=== PATIENT | male | born 1950 | race Caucasian/White ===

== ENCOUNTER 2022-09-18 08:49 | Outpatient (REF) | payer MEDICARE, SELFPAY ==
--- NOTE | ~2022-09-18 | FL_ITS ---
EXAMINATION: FL BARIUM SWALLOW CLINICAL INFORMATION: Heartburn. Gastroesophageal reflux disease COMPARISON: None TECHNIQUE: Barium swallow examination is performed using fluoroscopic evaluation in addition to multiple fluoroscopic spot views. The patient is imaged both upright and prone and using both thick and thin sulfate along with effervescent granules. Barium tablet was also administered. Fluoroscopy time: 0.9 minutes DAP: 9 Gycm2 Images: 45 FINDINGS: The swallowing mechanism is normal. No aspiration or penetration is seen. There is abnormal esophageal motility with tertiary contractions. There is significant gastroesophageal reflux. There is mucosal irregularity of the distal thoracic esophagus just above the GE junction and feline contractions questionable for Duran's esophagus. Endoscopic correlation is recommended. No mass or stricture is appreciated. No hernia. Barium tablet passed freely into the stomach. FL/FL barium swallow IMPRESSION: Severe gastroesophageal reflux. Mucosal irregularity of the distal thoracic esophagus just above the GE junction and feline contractions questionable for Duran's esophagus. Endoscopic correlation recommended.
== END 2022-09-18 08:50 | disposition home or self-care (01) ==
LOC: HO.XRAY 08:49
PROVIDERS: PCP Family Medicine; Visit Provider Internal Medicine Gastroenterology
DX: K21.9 Gastro-esophageal reflux disease without esophagitis (principal)
CPT/HCPCS: 74220

== ENCOUNTER → 2022-10-05 10:22 | Day surgery (SDC) | payer MEDICARE, SELFPAY ==
--- NOTE | 2022-10-04 10:51 | HO.ANESPROP2 ---
Documented by User: Annamaria Orellana NP 10/04/22 10:51 HPI - Anesthesia Eval Consult details Narrative: 71yo M for [facility] Past Medical History Medical History Elevated cholesterol Environmental allergies GERD (gastroesophageal reflux disease) HTN (hypertension) Surgical History Surgical History Hx of arthroscopic knee surgery Hx of colonoscopy Hx of tonsillectomy Social History Social History Patient Tobacco Use Status: Current someday Tobacco user Tobacco use type: Cigar Smoked in Last 30 Days: Yes Patient Interested in Nicotine Replacement: No Are you DNR?: No Advance Directives: No Advance Directives Information Provided: Yes Nutrition Risks: No Nutritional Risk Meds Allergies Allergy/AdvReac Type Severity Reaction Status Date / Time bee pollen [BEE STINGS] Allergy Unknown SWELLING Unverified 04/14/20 15:32 Home Medications Medication Instructions Recorded Confirmed Last Taken Type lisinopril 10 mg tablet 1 tab PO DAILY 10/04/22 10/04/22 Unknown History loratadine 10 mg tablet 10 mg PO DAILY 10/04/22 10/04/22 Unknown History simvastatin 20 mg tablet 1 tab PO DAILY 10/04/22 10/04/22 Unknown History Exam Exam Date and Time: October 04, 2022 1051 Assessment and Plan Assessment Anesthesia Assessment: Chart Reviewed Documented by User: Heena Amos MD 10/05/22 11:57 [facility] Past Medical History Medical History Elevated cholesterol Environmental allergies GERD (gastroesophageal reflux disease) HTN (hypertension) Surgical History Surgical History Hx of arthroscopic knee surgery Hx of colonoscopy Hx of tonsillectomy History of Problems with Anesthesia: No Social History Social History Patient Tobacco Use Status: Current someday Tobacco user Tobacco use type: Cigar Smoked in Last 30 Days: Yes Patient Interested in Nicotine Replacement: No Are you DNR?: No Advance Directives: No Advance Directives Information Provided: Yes Nutrition Risks: No Nutritional Risk Meds Allergies Allergy/AdvReac Type Severity Reaction Status Date / Time bee pollen [BEE STINGS] Allergy Unknown SWELLING Unverified 04/14/20 15:32 Home Medications Medication Instructions Recorded Confirmed Last Taken Type lisinopril 10 mg tablet 1 tab PO DAILY 10/04/22 10/04/22 Unknown History loratadine 10 mg tablet 10 mg PO DAILY 10/04/22 10/04/22 Unknown History simvastatin 20 mg tablet 1 tab PO DAILY 10/04/22 10/04/22 Unknown History Exam Airway Mallampati Class: III TM Dist: >3cm Neck ROM: Full Partial: Upper Loose/Missing/Broken Teeth: No Heart: RRR Lungs: CTA Assessment and Plan Assessment Anesthesia Assessment: Anesthesia Plan Discussed Final Anesthetic Review History of Problems with Anesthesia: No NPO: Yes ASA Class: II Final Preanesthetic Review: Meds/Allgs Chart Reviewed, Consent Obtained/Reviewed and Anes Risks/Benef Reviewed Patient Risk: Low Procedure Risk: Intermediate Anesthetic Plan Anesthetic Plan: MAC: Disposition: Standard PACU
[2022-10-05 10:54] VITALS: BMI 31.7
[2022-10-05] MEDS: Lactated Ringers 1,000 ML 100 ML IVCONT (10:55)
[2022-10-05 11:29] VITALS: BP 165/94; PULSE 72; RESP 18; TEMP 36.6; O2SAT 97
--- NOTE | 2022-10-05 11:56 | MHC.SHP ---
Pre-Procedural Eval Section A Date of Service: 10/05/22 Section B Chief Complaint: Abnormal findings on diagnostic imaging of other p Details of Present Illness: see H&P no changes Relevant Family History (Specify if Yes): No Relevant Social History: None Present Medications: see Short Stay Collaborative assessment Medical History: No relevant PMH History of Previous Operations: No relevant previous surgery Allergies: Allergies Allergy/AdvReac Type Severity Reaction Status Date / Time bee pollen [BEE STINGS] Allergy Unknown SWELLING Unverified 04/14/20 15:32 Review of Systems Sugical H&P ROS: Negative: Constitution, Cardiovascular, Respiratory, Neurological, Psychiatric, Hem-Onc, Allergic/Immunologic, Gastrointestinal, Genitourinary, Musculoskeletal, Integumentary, Endocrine and Eyes/Ears/Nose/Throat Exam Surgical H&P Exam: Normal: HEENT, Normal: Heart, Normal: Lungs, Normal: Extremities, Normal: Abdomen, Normal: Skin and Normal: Neurological Plan Diagnosis/Plan: Unchanged I have reviewed the history and physical and performed a pertinent physical examination on my patient. No changes have occurred unless specified. Time Spent With Patient Time: Total time managing care of this patient today ____ minutes.
--- NOTE | 2022-10-05 12:17 | P.BOP_ITS ---
Brief Operative Note Date of Service: 10/05/22 Pre-op diagnosis: abnl ba swallow Post-op diagnosis: same Procedure: egd Surgeon: Brock Zafar Anesthesia: MAC Was an Answering Service Telephone Operator used for this Procedure?: No Estimated blood loss (mL): 2 Pathology: other Condition: stable Disposition: PACU
[2022-10-05 12:20] VITALS: BP 101/79; PULSE 90; RESP 20; TEMP 36.2; O2SAT 98
[2022-10-05 12:39] VITALS: BP 120/74; PULSE 71; RESP 18; TEMP 36.1; O2SAT 96
--- NOTE | 2022-10-05 21:13 | OP_ITS ---
SURGEON: Brock Zafar MD INDICATIONS: Gastroesophageal reflux disease and abnormal x-ray of the GI tract. PREOPERATIVE DIAGNOSIS: POSTOPERATIVE DIAGNOSIS: PROCEDURE PERFORMED: Upper endoscopy with biopsy. ESTIMATED BLOOD LOSS: COMPLICATIONS: ANESTHESIA: Monitored anesthesia care. ASSISTANTS: SPECIMENS: DESCRIPTION OF PROCEDURE: The procedure was performed on 10/05/2022. A history and physical was performed. The risks and benefits of the procedure were explained to the patient. Informed consent was obtained. The patient was placed in the left lateral decubitus position. The Olympus video gastroscope was introduced into the esophagus, stomach, and duodenum. Examination was performed. The scope was removed. He tolerated the procedure well and was returned to the recovery area in stable condition. FINDINGS: Esophagus: The esophagus was normal. There was no esophagitis. Biopsies were obtained from the EG junction. There was small hiatal hernia. Stomach: The stomach showed no evidence of masses, ulcers, or polyps. Antral biopsies were obtained to evaluate for H pylori. Duodenum: The bulb and 2nd portion were normal. IMPRESSION: 1. Gastroesophageal reflux disease. 2. Hiatal hernia. RECOMMENDATION: Follow up the biopsy results. MD YULIET Muller/VANESSA / [id number]
== END | disposition home or self-care (01) ==
PROVIDERS: PCP Family Medicine; Visit Provider Internal Medicine Gastroenterology
PROC: 0DJ08ZZ Inspection of Upper Intestinal Tract, Via Natural or Artificial Opening Endoscopic (ICD-10-PCS; CPT 43235; principal; 2022-10-05 11:40)
DX: K21.9 Gastro-esophageal reflux disease without esophagitis (principal); K44.9 Diaphragmatic hernia without obstruction or gangrene; I10 Essential (primary) hypertension; E78.00 Pure hypercholesterolemia, unspecified; Z79.899 Other long term (current) drug therapy; F17.290 Nicotine dependence, other tobacco product, uncomplicated
CPT/HCPCS: 43239; 88305; J2250

== ENCOUNTER 2024-06-02 06:22 | Day surgery (SDC) | payer MEDICARE, SELFPAY ==
[2024-05-29 08:46] VITALS: BMI 31.5
--- NOTE | 2024-06-01 11:01 | P.CONAN_ITS ---
Documented by User: Annamaria Orellana NP 06/01/24 11:01 HPI - Anesthesia Eval Consult details Narrative: 73yo M for Colonoscopy [facility] Past Medical History Medical History (Updated 05/29/24 @ 08:47 by Mar Palafox RN) Duran's esophagus Elevated cholesterol GERD (gastroesophageal reflux disease) HTN (hypertension) Surgical History Surgical History (Updated 05/29/24 @ 08:46 by Mar Palafox RN) History of esophagogastroduodenoscopy (EGD) Hx of arthroscopic knee surgery Hx of tonsillectomy Hx of colonoscopy History of Problems with Anesthesia: No Social History Social History (Updated 05/29/24 @ 08:50 by Mar Palafox RN) Household Members: Spouse Patient Tobacco Use Status: Current someday Tobacco user Tobacco use type: Cigar Use of substances other than those prescribed or required for medical reasons: No Are you DNR?: No Advance Directives: No Advance Directives Information Provided: Yes Meds Allergies Allergy/AdvReac Type Severity Reaction Status Date / Time bee pollen [BEE STINGS] Allergy Unknown SWELLING Verified 06/02/24 06:45 Home Medications ?Medication ?Instructions ?Recorded ?Confirmed ?Last Taken ?Type lisinopril 10 mg tablet 1 tab PO DAILY 10/04/22 06/02/24 Unknown History loratadine 10 mg tablet 10 mg PO DAILY 10/04/22 06/02/24 06/02/24 History simvastatin 20 mg tablet 1 tab PO DAILY 10/04/22 06/02/24 Unknown History omeprazole 20 mg capsule,delayed 20 mg PO QAM 05/29/24 06/02/24 06/02/24 History release Exam Height,Weight and Vital Signs: Height 5 ft 8.5 in Weight 95.424 kg Assessment and Plan Assessment Anesthesia Assessment: Chart Reviewed Final Anesthetic Review History of Problems with Anesthesia: No Documented by User: Erin Harris MD 06/02/24 07:16 [facility] Past Medical History Medical History (Updated 05/29/24 @ 08:47 by Mar Palafox RN) Duran's esophagus Elevated cholesterol GERD (gastroesophageal reflux disease) HTN (hypertension) Family History Family history of problems with anesthesia: No Surgical History Surgical History (Updated 05/29/24 @ 08:46 by Mar Palafox RN) History of esophagogastroduodenoscopy (EGD) Hx of arthroscopic knee surgery Hx of tonsillectomy Hx of colonoscopy Social History Social History (Updated 05/29/24 @ 08:50 by Mar Palafox RN) Household Members: Spouse Patient Tobacco Use Status: Current someday Tobacco user Tobacco use type: Cigar Use of substances other than those prescribed or required for medical reasons: No Are you DNR?: No Advance Directives: No Advance Directives Information Provided: Yes Meds Allergies Allergy/AdvReac Type Severity Reaction Status Date / Time bee pollen [BEE STINGS] Allergy Unknown SWELLING Verified 06/02/24 06:45 Home Medications ?Medication ?Instructions ?Recorded ?Confirmed ?Last Taken ?Type lisinopril 10 mg tablet 1 tab PO DAILY 10/04/22 06/02/24 Unknown History loratadine 10 mg tablet 10 mg PO DAILY 10/04/22 06/02/24 06/02/24 History simvastatin 20 mg tablet 1 tab PO DAILY 10/04/22 06/02/24 Unknown History omeprazole 20 mg capsule,delayed 20 mg PO QAM 05/29/24 06/02/24 06/02/24 History release Exam Airway Mallampati Class: I TM Dist: >3cm Neck ROM: Full Assessment and Plan Assessment Anesthesia Assessment: Anesthesia Plan Discussed Final Anesthetic Review Family History of Problems with Anesthesia: No NPO: Yes ASA Class: II Final Preanesthetic Review: No Changes in Pt Med Stat, Meds/Allgs Chart Reviewed, Consent Obtained/Reviewed and Anes Risks/Benef Reviewed Patient Risk: Low Procedure Risk: Low Anesthetic Plan Anesthetic Plan: TIVA Disposition: Standard PACU
[2024-06-02 06:53] VITALS: BP 134/89; PULSE 74; RESP 16; TEMP 36.3; O2SAT 97; BMI 30.4
[2024-06-02] MEDS: Lactated Ringers 1,000 ML 100 ML IVCONT (07:05)
--- NOTE | 2024-06-02 07:20 | MHC.SHP ---
Pre-Procedural Eval Section A - 24 Hr Update-Section A only Date of Service: 06/02/24 Section B - Complete if H&P > 30 days Chief Complaint: screening Details of Present Illness: see H&P no changes Relevant Family History (Specify if Yes): No Relevant Social History: None Present Medications: see Short Stay Collaborative assessment Medical History: No relevant PMH Allergies: Allergies Allergy/AdvReac Type Severity Reaction Status Date / Time bee pollen [BEE STINGS] Allergy Unknown SWELLING Verified 06/02/24 06:45 Review of Systems Sugical H&P ROS: Negative: Constitution, Cardiovascular, Respiratory, Neurological, Psychiatric, Hem-Onc, Allergic/Immunologic, Gastrointestinal, Genitourinary, Musculoskeletal, Integumentary, Endocrine and Eyes/Ears/Nose/Throat Exam Surgical H&P Exam: Normal: HEENT, Normal: Heart, Normal: Lungs, Normal: Extremities, Normal: Abdomen, Normal: Skin and Normal: Neurological Plan Diagnosis/Plan: Unchanged I have reviewed the history and physical and performed a pertinent physical examination on my patient. No changes have occurred unless specified. Time Spent With Patient Time: Total time managing care of this patient today ____ minutes.
[2024-06-02 07:58] VITALS: BP 103/65; PULSE 78; RESP 14; TEMP 37.1; O2SAT 97
--- NOTE | 2024-06-02 08:03 | OP_ITS ---
DATE OF SERVICE: 06/02/2024 SURGEON: Brock Zafar MD INDICATIONS: Colon cancer screening. PREOPERATIVE DIAGNOSIS: POSTOPERATIVE DIAGNOSIS: PROCEDURE PERFORMED: Colonoscopy to the terminal ileum. ESTIMATED BLOOD LOSS: COMPLICATIONS: ANESTHESIA: Medications, monitored anesthesia care. ASSISTANTS: SPECIMENS: DESCRIPTION OF PROCEDURE: A history and physical performed. The risks and benefits of the procedure were explained to the patient. Informed consent was obtained. The patient was placed in the left lateral decubitus position. A digital rectal exam was performed and was found to be normal. The Olympus pediatric video colonoscope was introduced into the rectum and advanced to the cecum. The cecum was identified by transillumination, palpation, and identification of ileocecal valve. Examination was performed. The scope was removed. He tolerated the procedure well and was taken to recovery area in stable condition. FINDINGS: The terminal ileum was examined and appeared normal. The visualized colonic mucosa was normal. The quality of prep was good. No polyps were identified. Retroflexed examination showed small internal hemorrhoids. IMPRESSION: Normal colonoscopy. RECOMMENDATION: 1. Follow up as needed. 2. Repeat colonoscopy is recommended in 10 years for average-risk individuals. This is optional based on the patient's age. MD YULIET Muller/VANESSA / [id number]
[2024-06-02 08:13] VITALS: BP 111/66; PULSE 57; RESP 14; TEMP 36.9; O2SAT 97
== END 2024-06-02 08:38 | disposition home or self-care (01) ==
PROVIDERS: PCP Family Medicine; Visit Provider Internal Medicine Gastroenterology
PROC: 0DJD8ZZ Inspection of Lower Intestinal Tract, Via Natural or Artificial Opening Endoscopic (ICD-10-PCS; CPT 45378; principal; 2024-06-02 07:30)
DX: Z12.11 Encounter for screening for malignant neoplasm of colon (principal); K64.8 Other hemorrhoids; Z83.719 Family history of colon polyps, unspecified; I10 Essential (primary) hypertension; K21.9 Gastro-esophageal reflux disease without esophagitis; Z79.899 Other long term (current) drug therapy
CPT/HCPCS: G0105; J2003; J2704